=== PATIENT | female | born 1990 | race Caucasian/White ===

== ENCOUNTER → 2016-05-12 | Outpatient (CLI) | payer MEDICAID ==
[~2016-05-12] MED LIST: PNV1TABL43 PO
--- NOTE | 2016-05-12 11:34 | RADRPT ---
PROCEDURE: OBSTETRICAL ULTRASOUND WITH ENDOVAGINAL IMAGES CLINICAL INDICATION: SIZE/DATE TECHNIQUE: Multiple sonographic images of the pelvis were obtained utilizing a transabdominal and endovaginal technique. The images were reviewed on a PACS workstation. COMPARISON: None. LMP: FINDINGS: The uterus measures 8.1 x 5.2 x 5.2 cm. There is a single live intrauterine with heart rate of 163 beats per minute, yolk sa c, and crown-rump length of 2.46 cm which is consistent with a gestational age of 9 weeks, 1 day . The estimated date of delivery by ultrasound is in 12/14/2016 . The estimated gestational age by LMP is 10 weeks, 6 days . The estimated date of delivery by LMP is 12/02/2016 . There is a hypoechoic and hypovascular crescentic lesion adjacent to the gestational sac measuring 1 .6 x 0.7 cm. There is a similar adjacent hypoechoic and hypovascular crescentic lesion measuring 3. 4 x 0.2 cm. The right ovary measures 2.7 x 1.8 x 2.1 cm. The left ovary measures 2.6 x 2.1 x 2.2 cm. There is no rmal vascular flow in both ovaries. No significant ovarian lesions are seen. No significant pelvic free fluid is identified. IMPRESSION: Single live intrauterine consistent with a gestational age of 9 weeks, 1 day . The estimated date of delivery is 12/14/2016 . Dating by ultrasound is within 12 days of dating by LMP. Subchorionic hemorrhages measuring up to 1.6 cm and 3.4 cm. RPTAT: EE Physician Hailee Date Time Electronically viewed and signed by Physician Hailee on 05/12/2016 11:33 /
== END | disposition home or self-care (01) ==
LOC: U/S 09:42
PROVIDERS: ATTEND Obstetrics & Gynecology
DX: O26.841 Uterine size-date discrepancy, first trimester (principal); Z3A.09 9 weeks gestation of pregnancy
CPT/HCPCS: 76801; 76817

== ENCOUNTER 2016-08-27 09:51 | Emergency (ER) | payer OTHER ==
[~2016-08-27] VITALS: Ht 154.9 cm; Wt 106.5 kg
[2016-08-27 09:54] VITALS: Ht 154.9 cm; Wt 106.5 kg
[2016-08-27] MEDS ORDERED: ACET325T33 PO (10:26)
[2016-08-27] MEDS ORDERED: BACITUD TOP (10:26)
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
== END 2016-08-27 11:41 | disposition home or self-care (01) ==
LOC: FTE 09:51
DX: O9A.213 Injury, poisoning and certain other consequences of external causes complicating pregnancy, third trimester (principal); T21.22XA Burn of second degree of abdominal wall, initial encounter; X15.3XXA Contact with hot saucepan or skillet, initial encounter; Y92.9 Unspecified place or not applicable; Z3A.00 Weeks of gestation of pregnancy not specified
CPT/HCPCS: 99283

== ENCOUNTER 2016-09-07 10:04 | Outpatient (CLI) | payer OTHER ==
[~2016-09-07] VITALS: Ht 152.4 cm; Wt 105.9 kg
[~2016-09-07 10:04] MED LIST changes: +ACET325T33 PO; +BACITUD TOP
[2016-09-07 10:34] VITALS: BP 120/58; Ht 152.4 cm; Wt 105.9 kg
[2016-09-07 11:26] LABS: ADD SCAN DIFF NO
--- NOTE | 2016-09-07 11:35 | RADRPT ---
PROCEDURE: OB ultrasound (limited) CLINICAL INDICATION: Fall, pain TECHNIQUE: Limited transabdominal sonographic evaluation of the gravid uterus was performed. Miranda svaginal images were obtained to assess cervical length. COMPARISON: None available FINDINGS: Single intrauterine gestation is identified in breech presentation. Placenta is anterior without ev idence for abruption or previa. heart rate is 143 bpm. The cervix is closed and measures 3.4 cm in length. LENORA measures 7.6 cm, within normal limits. Maximum vertical pocket of fluid measure s 2.3 cm. Gestational age was not assessed. IMPRESSION: 1. Single live intrauterine gestation, as above. Breech presentation. RPTAT: EE .Obdulio Vargas MD, MD Date Time Electronically viewed and signed by .Obdulio Vargas MD, MD on 09/07/2016 11:34 .R/
[2016-09-07 11:42] LABS: BASOPHIL # 0.1 10^3/ul (0.0-0.1); BASOPHILS % 0.5 % (0.0-2.0); EOSINOPHILS # 0.2 10^3/ul (0.0-0.5); EOSINOPHILS % 1.8 % (0.0-7.0); HEMATOCRIT 34.9 % (37.0-47.0); HEMOGLOBIN 11.5 g/dl (12.0-16.0); LYMPHOCYTES # 2.3 10^3/ul (0.8-2.9); LYMPHOCYTES % 24.8 % (15.0-51.0); MEAN CORPUSCULAR HEMOGLOBIN 27.5 pg (29.0-33.0); MEAN CORPUSCULAR VOLUME 83.5 fl (82.0-101.0); MEAN PLATELET VOLUME 9.3 fl (7.4-10.4); MONOCYTE # 0.5 10^3/ul (0.3-0.9); MONOCYTES % 4.9 % (0.0-11.0); NEUTROPHIL # 6.2 10^3/ul (1.6-7.5); NEUTROPHILS % 67.4 % (39.0-77.0); PLATELET COUNT 327 10^3/UL (140-415); RED BLOOD COUNT 4.18 10^6/ul (4.20-5.40); RED CELL DISTRIBUTION WIDTH 13.3 % (11.5-14.5); WHITE BLOOD COUNT 9.3 10^3/ul (4.8-10.8)
--- NOTE | 2016-09-07 12:45 | RADRPT ---
PROCEDURE: OB ultrasound for biophysical profile CLINICAL INDICATION: Poor tone. TECHNIQUE: Multiple sonographic images of the pelvis were obtained. Transabdominal views of the g ravid uterus are available for review. The images were reviewed on a PACS workstation. COMPARISON: None FINDINGS: breathing movement = 2/2 tone = 2/2 motion = 2/2 LENORA = 2/2 LENORA = 8.9 cm Single live intrauterine with cardiac activity of 131 bpm. position is breech . The placenta is anterior. IMPRESSION: 1. Single live intrauterine gestation. 2. Biophysical profile = 8/8. 3. LENORA = 8.9 cm. 4. Breech presentation. RPTAT: HH .Lulu Yadav MD, Date Time Electronically viewed and signed by .Lulu Yadav MD, on 09/07/2016 12:45 .G/
--- NOTE | 2016-09-07 13:23 | TRIAGE ---
OB Triage Datetime Report Generated by CPN: 09/07/2016 13:22 Datetime: 09/07/2016 12:00 Pain Assessment Pain Scale: 0 Pain Presence: None/Denies Pain Type: N/A Datetime: 09/07/2016 11:52 Labor Evaluation Frequency: 0 Monitor Mode: External Pattern: Normal: <= 5 Contractions in 10 Minutes Resting Tone [place]: Relaxed Heart Rate Monitor Mode: External US Comments: NOT ABLE TO KEEP ON EXTERNAL MONITOR FHT AUSCULTATED WITH DOPPLER Datetime: 09/07/2016 11:22 EGA: 26.0 Datetime: 09/07/2016 10:50 Time Provider Notified: 09/07/2016 10:50 Datetime: 09/07/2016 10:40 Stage of : OB Triage Assessment Type: Triage Maternal Assessment Level of Consciousness: Fully Conscious DTR's/Clonus: DTRs 2+; No Clonus Headache: Denies Blurred Vision: No Respiratory Effort: Unlabored; Regular Rhythm; Equal Expansion Breath Sounds, Left: Clear and Equal Breath Sounds, Right: Clear and Equal Nausea/Vomiting: Denies RUQ Epigastric Pain: Denies Lower Extremities Edema: None Degree: None Upper Extremities Edema: None Degree: None Facial Edema: None Temperature Route: Oral Fall Risk Assessment History of Falling: (0) No Secondary Diagnosis: (0) No Ambulatory Aid: (0) Bedrest/Nurse Assist IV Therapy: (0) No Gait: (0) Normal/Bedrest/Immobile Mental Status: (0) Oriented to Own Ability Fall Score: 0 Fall Risk Score Definition: No Risk: No action required Monitor Mode: External Heart Rate Monitor Mode: Doppler (Annotations: 143) Variability: Moderate 6-25 bpm Accelerations: 15X15 Category: Category I Pain Assessment Pain Scale: 0 Pain Presence: None/Denies Pain Type: N/A Datetime: 09/07/2016 10:38 Time of Arrival: 09/07/2016 10:00 Arrived By: Ambulatory Arrived From: Dr. Poe Chief Complaint: SENT FROM CLINIC FOR S/P FALL ON 09/06/16 Movement: Present Rupture of Membranes: Denies Vaginal Bleeding: None Vaginal Discharge: Denies Recent Sexual Intercouse: Denies Abdominal Trauma: Not Applicable Patient Complaints: None Time Provider Notified: 09/07/2016 10:50 Provider Notified: DR. GUERRIER Initial Plan: EFM, US, KB TEST. CBC
--- NOTE | 2016-09-07 14:56 | QN ---
Documentation Comment 26-year-old with IUP at 26 weeks and 1 day status post fall yesterday at 9 PM. She landed on her knees. Denies any trauma to her abdomen. Denies any vaginal bleeding uterine contractions or decreased movement. She was sent from her OB office clinic today for observation and further evaluation rule out for abruption. Patient currently denies any symptoms. Rh+. Denies any pain. Denies any direct trauma to her abdomen. Physical examination: General appearance: Alert and oriented 4. Patient does not appear to be in any acute distress. Abdomen: Soft, gravid, fundal height consistent with gestational age. Abdomen nontender, no rebound tenderness, no guarding, no rigidity, NST: Category 1. Ultrasound: Breech presentation without any evidence of abruption or previa. Cervical length 3.4 cm. Cervix closed. LENORA 7.6. PROCEDURE: OB ultrasound for biophysical profile CLINICAL INDICATION: Poor tone. TECHNIQUE: Multiple sonographic images of the pelvis were obtained. Transabdominal views of the gravid uterus are available for review. The images were reviewed on a PACS workstation. COMPARISON: None FINDINGS: breathing movement = 2/2 tone = 2/2 motion = 2/2 LENORA = 2/2 LENORA = 8.9 cm Single live intrauterine with cardiac activity of 131 bpm. position is breech. The placenta is anterior. IMPRESSION: 1. Single live intrauterine gestation. 2. Biophysical profile = 8/8. 3. LENORA = 8.9 cm. 4. Breech presentation. PROCEDURE: OB ultrasound (limited) CLINICAL INDICATION: Fall, pain TECHNIQUE: Limited transabdominal sonographic evaluation of the gravid uterus was performed. Transvaginal images were obtained to assess cervical length. COMPARISON: None available FINDINGS: Single intrauterine gestation is identified in breech presentation. Placenta is anterior without evidence for abruption or previa. heart rate is 143 bpm. The cervix is closed and measures 3.4 cm in length. LENORA measures 7.6 cm, within normal limits. Maximum vertical pocket of fluid measures 2.3 cm. Gestational age was not assessed. IMPRESSION: 1. Single live intrauterine gestation, as above. Breech presentation. RPTAT: Hematology - 72 Hrs Test 09/07/16 11:05 White Blood Count 9.310^3/ul (4.8-10.8) Red Blood Count 4.1810^6/ul (4.20-5.40) L Hemoglobin 11.5g/dl (12.0-16.0) L Hematocrit 34.9% (37.0-47.0) L Mean Corpuscular Volume 83.5fl (82.0-101.0) Mean Corpuscular Hemoglobin 27.5pg (29.0-33.0) L Mean Corpuscular Hemoglobin Concent 33.0g/dl (32.0-37.0) Red Cell Distribution Width 13.3% (11.5-14.5) Platelet Count 12634^3/UL (140-415) Mean Platelet Volume 9.3fl (7.4-10.4) Neutrophils % 67.4% (39.0-77.0) Lymphocytes % 24.8% (15.0-51.0) Monocytes % 4.9% (0.0-11.0) Eosinophils % 1.8% (0.0-7.0) Basophils % 0.5% (0.0-2.0) Nucleated Red Blood Cells % 0.0/100WBC (0.0-0.0) Neutrophils # 6.210^3/ul (1.6-7.5) Lymphocytes # 2.310^3/ul (0.8-2.9) Monocytes # 0.510^3/ul (0.3-0.9) Eosinophils # 0.210^3/ul (0.0-0.5) Basophils # 0.110^3/ul (0.0-0.1) Nucleated Red Blood Cells # 0.010^3/ul (0.0-0.0) Kleihauer-Betke Stain 0.0000F/ARatio (0.0000) Assessment: IUP at 26 weeks and 1 day Status post fall Not direct trauma to the abdomen BPP reassuring. Ultrasound with no evidence of abruption LENORA: Borderline 7.6 Patient is asymptomatic. Presented more than 12 hours after trauma. She is a stable and asymptomatic. Rh+. Plan: DC home Follow-up in triage after adequate hydration tomorrow for repeat LENORA due to borderline low LENORA Follow-up with OB clinic as a scheduled in a couple of days. Strict labor precaution and kick count and abruption precaution was given to the patient. Patient verbalized understanding all above plan. HANS GROSS MD September 07, 2016 14:56
== END 2016-09-07 13:19 | disposition home or self-care (01) ==
LOC: OBT 10:04 → L-D 10:04 → OBT 13:19
PROVIDERS: ATTEND Obstetrics & Gynecology
DX: O32.1XX0 Maternal care for breech presentation, not applicable or unspecified (principal); Z3A.26 26 weeks gestation of pregnancy
CPT/HCPCS: 36415; 76815; 76817; 76818; 85025; 85460; Z7500; G0463

== ENCOUNTER 2016-11-24 10:29 | Outpatient (CLI) | payer OTHER ==
[~2016-11-24] VITALS: Ht 152.4 cm; Wt 107.3 kg
[2016-11-24 10:56] VITALS: BP 123/68; PULSE 86; RESP 18
[2016-11-24 10:58] VITALS: Ht 152.4 cm; Wt 107.3 kg
--- NOTE | 2016-11-24 12:57 | PN ---
Triage Information Date/Time 11/24/2016 Reason for visit: SROM Weeks of Gestation 37.1 /Para Objective Vital Signs Date Time Temp Pulse Resp B/P Pulse Ox O2 Delivery O2 Flow Rate FiO2 11/24/16 10:56 98.3 86 18 123/68 98 Room Air Heart Rate: 140's Heart Rate Comments reactive Contractions: None Results/Medications Results 24 hrs Laboratory Tests Test 11/24/16 11:30 Membranes Rupture NEGATIVE Medications none Imaging Results LENORA: seven Disposition: Discharge Assessment/Plan F/U with NST and office KELLE KIM MD Nov 24, 2016 12:57
--- NOTE | 2016-11-24 13:14 | TRIAGE ---
OB Triage Datetime Report Generated by CPN: 11/24/2016 13:13 Datetime: 11/24/2016 12:25 Monitor Mode: External Monitor Mode: External US Datetime: 11/24/2016 11:30 Stage of : OB Triage Maternal Assessment Level of Consciousness: Fully Conscious Labor Evaluation Frequency: OCCASIONAL Monitor Mode: External Duration (sec)2399: 80 Quality: Mild Resting Tone [place]: Relaxed Heart Rate FHR Baseline Rate: 125 Monitor Mode: External US Variability: Moderate 6-25 bpm Accelerations: 15X15 Decelerations: None Category: Category I Pain Assessment Pain Scale: 0 Pain Goal: 3 Vaginal Bleeding: None Datetime: 11/24/2016 11:28 Vaginal Exam Dilatation (cms): 0.0 Exam By: KHEMANI Vaginal Bleeding: None Pool: Negative Nitrazine: Negative Cervix, Consistency: Firm Cervix, Position: Posterior Datetime: 11/24/2016 10:54 Assessment Type: Triage Maternal Assessment Level of Consciousness: Fully Conscious DTR's/Clonus: DTRs 2+; No Clonus Headache: Denies Blurred Vision: No Respiratory Effort: Unlabored; Regular Rhythm; Equal Expansion Breath Sounds, Left: Clear and Equal Breath Sounds, Right: Clear and Equal Nausea/Vomiting: Denies RUQ Epigastric Pain: Denies Lower Extremities Edema: None Degree: None Upper Extremities Edema: None Degree: None Facial Edema: None Fall Risk Assessment History of Falling: (0) No Secondary Diagnosis: (0) No Ambulatory Aid: (0) Bedrest/Nurse Assist IV Therapy: (0) No Gait: (0) Normal/Bedrest/Immobile Mental Status: (0) Oriented to Own Ability Fall Score: 0 Fall Risk Score Definition: No Risk: No action required Datetime: 11/24/2016 10:53 Time of Arrival: 11/24/2016 10:24 EGA: 37.1 Arrived By: Ambulatory Arrived From: Other Unit in Hospital Chief Complaint: pt sent from [facility] FOR DROP IN LENORA TO R/O SROM Movement: Present Rupture of Membranes: Denies Vaginal Bleeding: None Vaginal Discharge: Denies Recent Sexual Intercouse: Denies Abdominal Trauma: Not Applicable Patient Complaints: None Provider Notified: CHEY Initial Plan: rom plus Datetime: 11/24/2016 10:50 Monitor Mode: External Monitor Mode: External US Datetime: 09/07/2016 11:22 EGA: 26.0 Datetime: 09/07/2016 10:40 Fall Score: 0 Fall Risk Score Definition: No Risk: No action required
== END 2016-11-24 13:20 | disposition home or self-care (01) ==
LOC: OBT 10:29 → L-D 10:32 → OBT 13:20
PROVIDERS: ATTEND Obstetrics & Gynecology
DX: O42.92 Full-term premature rupture of membranes, unspecified as to length of time between rupture and onset of labor (principal); Z3A.37 37 weeks gestation of pregnancy
CPT/HCPCS: 84112; Z7500; G0463

== ENCOUNTER 2016-11-28 12:01 | Outpatient (CLI) | payer OTHER ==
[~2016-11-28] VITALS: Ht 152.4 cm; Wt 106.8 kg
[~2016-11-28 12:01] MED LIST changes: -ACET325T33 PO; -BACITUD TOP
[2016-11-28 12:15] VITALS: Ht 152.4 cm; Wt 106.8 kg
[2016-11-28 12:16] VITALS: BP 122/69; PULSE 100; RESP 18
[2016-11-28] MEDS ORDERED: IRON1TAB77 PO (12:19)
[2016-11-28] MEDS ORDERED: CALC-143 PO (12:20)
[2016-11-28 13:49] LABS: BASOPHIL # 0.1 10^3/ul (0.0-0.1); BASOPHILS % 0.5 % (0.0-2.0); EOSINOPHILS # 0.1 10^3/ul (0.0-0.5); EOSINOPHILS % 0.9 % (0.0-7.0); HEMATOCRIT 36.9 % (37.0-47.0); HEMOGLOBIN 12.5 g/dl (12.0-16.0); LYMPHOCYTES # 2.3 10^3/ul (0.8-2.9); LYMPHOCYTES % 20.4 % (15.0-51.0); MEAN CORPUSCULAR HGB CONC 33.9 g/dl (32.0-37.0); MEAN CORPUSCULAR VOLUME 82.6 fl (82.0-101.0); MEAN PLATELET VOLUME 9.1 fl (7.4-10.4); MONOCYTE # 0.6 10^3/ul (0.3-0.9); MONOCYTES % 5.4 % (0.0-11.0); NEUTROPHILS % 72.2 % (39.0-77.0); PLATELET COUNT 332 10^3/UL (140-415); RED BLOOD COUNT 4.47 10^6/ul (4.20-5.40); RED CELL DISTRIBUTION WIDTH 12.6 % (11.5-14.5); WHITE BLOOD COUNT 11.4 10^3/ul (4.8-10.8)
--- NOTE | 2016-11-28 13:53 | RADRPT ---
PROCEDURE: OB ultrasound for biophysical profile CLINICAL INDICATION: Hypertension TECHNIQUE: Multiple sonographic images of the pelvis were obtained. Transabdominal view of the gr avid uterus are available for review. The images were reviewed on a PACS workstation. COMPARISON: None FINDINGS: breathing movement = 2/2 tone = 2/2 motion = 2/2 LENORA = 2/2 LENORA = 7.3 cm, consistent with borderline oligohydramnios Single live intrauterine with cardiac activity. heart rate equals 154 beats p er minute. Presentation is cephalic. The placenta is anterior grade 1. IMPRESSION: 1. Single viable intrauterine gestation. 2. Biophysical profile = 8/8. 3. LENORA = 7.3 cm, consistent with borderline oligohydramnios. RPTAT: KK .Clarke Melgar MD, Date Time Electronically viewed and signed by .Clarke Melgar MD, MD on 11/28/2016 13:53 .B/
[2016-11-28 14:07] LABS: ADD UMIC YES; ALBUMIN 3.4 g/dl (3.3-4.9); ALBUMIN/GLOBULIN RATIO 1.09; CREATININE 0.65 mg/dl (0.44-1.00); TOTAL PROTEIN 6.5 g/dl (6.1-8.1); UR ASCORBIC ACID NEGATIVE (NEGATIVE); UR BILIRUBIN (Dip) NEGATIVE (NEGATIVE); UR BLOOD (Dip) NEGATIVE (NEGATIVE); UR CLARITY CLEAR (CLEAR); UR COLOR YELLOW (YELLOW); UR GLUCOSE (Dip) NEGATIVE (NEGATIVE); UR KETONES (Dip) NEGATIVE (NEGATIVE); UR LEUKOCYTE ESTERASE (Dip) 1+ Leu/ul (NEGATIVE); UR MUCUS FEW /HPF (NONE SEEN); UR NITRITE (Dip) NEGATIVE (NEGATIVE); UR RBC 1 /HPF (0-5); UR SPECIFIC GRAVITY (Dip) 1.019 (1.003-1.030); UR SQUAMOUS EPITHELIAL CELL FEW /HPF (FEW); UR TOTAL PROTEIN (Dip) NEGATIVE (NEGATIVE); UR UROBILINOGEN (Dip) NEGATIVE (NEGATIVE); URIC ACID 5.4 mg/dl (3.1-7.9)
--- NOTE | 2016-11-28 18:13 | QN ---
Documentation Comment iup 37 weeks HPB vss exam wnl labns wnl a/p iup 37 weeks PIH ruled out false labor dc home KAILEE PITTMAN MD Nov 28, 2016 18:12
== END 2016-11-28 14:42 | disposition home or self-care (01) ==
LOC: L-D 12:01 → OBT 12:01
PROVIDERS: ATTEND Obstetrics & Gynecology
DX: O13.3 Gestational [pregnancy-induced] hypertension without significant proteinuria, third trimester (principal); Z3A.37 37 weeks gestation of pregnancy
CPT/HCPCS: 76818; 80053; 81001; 84560; 85025; Z7500; G0463

== ENCOUNTER 2016-12-07 04:30 | Inpatient (IN) | payer OTHER ==
[~2016-12-07] VITALS: Ht 152.4 cm; Wt 107.1 kg
[~2016-12-07 04:30] MED LIST changes: +CALC-143 PO; +IRON1TAB77 PO
[2016-12-07 05:04] VITALS: Ht 152.4 cm; Wt 107.1 kg
[2016-12-07 05:05] VITALS: BP 129/68; PULSE 64
--- NOTE | 2016-12-07 06:05 | RADRPT ---
PROCEDURE: Limited OB ultrasound CLINICAL INDICATION: Low LENORA TECHNIQUE: Sonographic evaluation to assess the LENORA was performed. Transabdominal imaging of the gravid uterus was performed. COMPARISON: Biophysical profile dated 11/28/2016 FINDINGS: There is a single live intrauterine with a heart rate of 134 bpm. position is cephalic. The placenta is anterior. The LENORA measures 5.3 cm. IMPRESSION: The LENORA measures 5.3 cm, compared to 7.3 cm on the prior examination. RPTAT: HH .Lulu Yadav MD, MD Date Time Electronically viewed and signed by .Lulu Yadav MD, on 12/07/2016 06:05 .G/
[2016-12-07] MEDS ORDERED: CARBOPROST 250 MCG INJ IM PRN ×2 (07:00→21:30)
[2016-12-07] MEDS ORDERED: OXYTOCIN 30 UNITS/LR 500 ML IV SCH ×2 (07:00)
[2016-12-07] MEDS ORDERED: IBUPROFEN 600 MG TAB PO PRN (07:00)
[2016-12-07] MEDS ORDERED: LIDOCAINE 1% (MPF) 30 ML INJ INJ PRN (07:00)
[2016-12-07] MEDS ORDERED: METHYLERGONOVINE 0.2 MG INJ IM PRN ×2 (07:00→21:30)
[2016-12-07] MEDS ORDERED: BUTORPHANOL 2 MG INJ IV PRN (07:00)
[2016-12-07] MEDS ORDERED: MISOPROSTOL 200 MCG TAB PR PRN ×2 (07:00→21:30)
[2016-12-07] MEDS ORDERED: LACTATED RINGER'S 1,000 ML IV PRN (07:00)
[2016-12-07] MEDS ORDERED: OXYTOCIN 30 UNITS/LR 500 ML IV PRN ×2 (07:00→21:30)
--- NOTE | 2016-12-07 07:08 | TRIAGE ---
OB Triage Datetime Report Generated by CPN: 12/07/2016 07:08 Datetime: 12/07/2016 06:55 Labor Evaluation Frequency: 8-9 Monitor Mode: External Duration (sec)2399: 60-70 Pattern: Normal: <= 5 Contractions in 10 Minutes Heart Rate FHR Baseline Rate: 130 Monitor Mode: External US FHR Baseline Changes: No Baseline Change Variability: Moderate 6-25 bpm Accelerations: 15X15 Datetime: 12/07/2016 06:32 Vaginal Exam Dilatation (cms): 2.0 Effacement (%): 60 Station: -2 Exam By: GSTRATTON Datetime: 12/07/2016 06:00 Labor Evaluation Frequency: 8-9 Monitor Mode: External Duration (sec)2399: 60-70 Pattern: Normal: <= 5 Contractions in 10 Minutes Heart Rate FHR Baseline Rate: 130 Monitor Mode: External US FHR Baseline Changes: No Baseline Change Variability: Moderate 6-25 bpm Accelerations: 15X15 Datetime: 12/07/2016 05:13 Comments: EXTERNAL MONITORING CONTINUOUS WITH LOSS OF CONTACT D/T EXCESSIVE ADIPOSE TISSUE, PT IS OBESE, LARGE BMI Datetime: 12/07/2016 04:52 Stage of : OB Triage Assessment Type: Triage Maternal Assessment Level of Consciousness: Fully Conscious Headache: Denies Blurred Vision: No Respiratory Effort: Unlabored; Regular Rhythm; Equal Expansion Nausea/Vomiting: Denies RUQ Epigastric Pain: Denies Facial Edema: None Fall Risk Assessment History of Falling: (0) No Secondary Diagnosis: (0) No Ambulatory Aid: (0) Bedrest/Nurse Assist IV Therapy: (0) No Gait: (0) Normal/Bedrest/Immobile Mental Status: (0) Oriented to Own Ability Fall Score: 0 Fall Risk Score Definition: No Risk: No action required Datetime: 12/07/2016 04:51 Time of Arrival: 12/07/2016 04:30 EGA: 39.0 Arrived By: Wheelchair Arrived From: Home Chief Complaint: UC'S SINCE 2099 Movement: Present Contractions: Regular Time Contractions Began: 12/06/2016 21:00 Contractions: Q5MIN Rupture of Membranes: Denies Vaginal Bleeding: None Vaginal Discharge: Denies Recent Sexual Intercouse: Denies Abdominal Trauma: Not Applicable Patient Complaints: Contractions Time Provider Notified: 12/07/2016 05:35 Provider Notified: DELSHAD Initial Plan: EFM, SVE, CALL OB Datetime: 12/07/2016 04:47 Stage of : OB Triage Vaginal Exam Dilatation (cms): 2.0 Effacement (%): 60 Station: -2 Exam By: GSTRATTYAMIL RN Membrane Status: Intact Datetime: 12/07/2016 04:40 Stage of : OB Triage Temperature Route: Oral Pain Assessment Pain Scale: 7 Pain Presence: Intermittent Datetime: 11/28/2016 14:42 Labor Evaluation Frequency: 0 Monitor Mode: External Pattern: Normal: <= 5 Contractions in 10 Minutes Resting Tone [place]: Relaxed Heart Rate FHR Baseline Rate: 130 Monitor Mode: External US Variability: Moderate 6-25 bpm Accelerations: 15X15 Decelerations: None Category: Category I Pain Presence: None/Denies Datetime: 11/28/2016 14:27 Maternal Assessment Level of Consciousness: Fully Conscious DTR's/Clonus: DTRs 2+; No Clonus Headache: Denies Blurred Vision: No Nausea/Vomiting: Denies RUQ Epigastric Pain: Denies Facial Edema: None Datetime: 11/28/2016 14:26 Monitor Mode: External US Datetime: 11/28/2016 13:08 Labor Evaluation Frequency: 0 Monitor Mode: External Pattern: Normal: <= 5 Contractions in 10 Minutes Resting Tone [place]: Relaxed Heart Rate FHR Baseline Rate: 130 Monitor Mode: External US Variability: Moderate 6-25 bpm Accelerations: 15X15 Decelerations: None Category: Category I Datetime: 11/28/2016 12:23 Assessment Type: Admission Assessment Maternal Assessment Level of Consciousness: Fully Conscious DTR's/Clonus: DTRs 2+; No Clonus Headache: Denies Blurred Vision: No Respiratory Effort: Unlabored; Regular Rhythm; Equal Expansion Breath Sounds, Left: Clear and Equal Breath Sounds, Right: Clear and Equal Nausea/Vomiting: Denies RUQ Epigastric Pain: Denies Lower Extremities Edema: None Degree: None Upper Extremities Edema: None Degree: None Facial Edema: None Fall Risk Assessment History of Falling: (0) No Secondary Diagnosis: (0) No Ambulatory Aid: (0) Bedrest/Nurse Assist IV Therapy: (0) No Gait: (0) Normal/Bedrest/Immobile Mental Status: (0) Oriented to Own Ability Fall Score: 0 Fall Risk Score Definition: No Risk: No action required Datetime: 11/28/2016 12:22 Time of Arrival: 11/28/2016 11:55 EGA: 37.5 Arrived By: Ambulatory Arrived From: Home Chief Complaint: PT. HERE FROM CLINIC FOR HIGH BP'S. Movement: Present Contractions: Denies/Absent Rupture of Membranes: Denies Vaginal Bleeding: None Vaginal Discharge: Denies Recent Sexual Intercouse: Denies Abdominal Trauma: Not Applicable Patient Complaints: None Time Provider Notified: 11/28/2016 12:37 Provider Notified: DR. GUERRIER Initial Plan: TOCO / US. CBC, CMP, URIC ACID, UA AND BPP Datetime: 11/28/2016 12:09 Stage of : OB Triage Pain Presence: None/Denies Datetime: 11/24/2016 12:30 Stage of : OB Triage Maternal Assessment Level of Consciousness: Fully Conscious Labor Evaluation Frequency: NONE Monitor Mode: External Resting Tone [place]: Relaxed Heart Rate FHR Baseline Rate: 125 Monitor Mode: External US Variability: Moderate 6-25 bpm Accelerations: 15X15 Decelerations: None Pain Assessment Pain Scale: 0 Pain Goal: 3 Vaginal Bleeding: None Datetime: 11/24/2016 10:54 Fall Score: 0 Fall Risk Score Definition: No Risk: No action required Datetime: 11/24/2016 10:53 EGA: 37.1 Time Provider Notified: 11/24/2016 10:24 Datetime: 09/07/2016 11:22 EGA: 26.0 Datetime: 09/07/2016 10:40 Fall Score: 0 Fall Risk Score Definition: No Risk: No action required
[2016-12-07] MEDS: LACTATED RINGER'S 1,000 ML IV SCH ×3 (07:59→16:10)
[2016-12-07 08:59] LABS: BASOPHIL # 0.1 10^3/ul (0.0-0.1); BASOPHILS % 0.7 % (0.0-2.0); EOSINOPHILS # 0.2 10^3/ul (0.0-0.5); EOSINOPHILS % 1.3 % (0.0-7.0); HEMATOCRIT 35.3 % (37.0-47.0); HEMOGLOBIN 12.2 g/dl (12.0-16.0); LYMPHOCYTES # 2.6 10^3/ul (0.8-2.9); LYMPHOCYTES % 23.4 % (15.0-51.0); MEAN CORPUSCULAR HEMOGLOBIN 28.3 pg (29.0-33.0); MEAN CORPUSCULAR HGB CONC 34.6 g/dl (32.0-37.0); MEAN CORPUSCULAR VOLUME 81.9 fl (82.0-101.0); MEAN PLATELET VOLUME 10.4 fl (7.4-10.4); MONOCYTE # 0.6 10^3/ul (0.3-0.9); MONOCYTES % 5.7 % (0.0-11.0); NEUTROPHILS % 68.3 % (39.0-77.0); PLATELET COUNT 334 10^3/UL (140-415); RED BLOOD COUNT 4.31 10^6/ul (4.20-5.40); RED CELL DISTRIBUTION WIDTH 12.8 % (11.5-14.5); WHITE BLOOD COUNT 11.2 10^3/ul (4.8-10.8)
[2016-12-07] MEDS ORDERED: AMPICILLIN 2 GM/NS (PMX) 100 ML IV ONE (09:00)
[2016-12-07 09:18] LABS: INR 0.91; PROTIME 12.2 Sec (12.2-14.2)
[2016-12-07 09:19] LABS: PARTIAL THROMBOPLASTIN TIME 28.6 Sec (25.0-35.0)
[2016-12-07] MEDS ORDERED: AMPICILLIN 1 GM/NS (PMX) 50 ML ONE (11:33)
[2016-12-07] MEDS: AMPICILLIN 1 GM/NS (PMX) 50 ML IV SCH ×2 (11:40→16:18)
[2016-12-07] MEDS ORDERED: CITRIC ACID/NA CITRATE 30 ML CUP ONE (14:18)
[2016-12-07] MEDS ORDERED: LACTATED RINGER'S 1,000 ML IV ONE (14:19)
[2016-12-07] MEDS ORDERED: ONDANSETRON 4 MG INJ ONE (14:19)
[2016-12-07] MEDS ORDERED: FENTAnyl 2MCG/ML-ROPIV 0.2% 100 ML ONE (14:24)
[2016-12-07] MEDS ORDERED: ONDANSETRON 4 MG INJ IV PRN (14:30)
[2016-12-07] MEDS ORDERED: NALOXONE (0.4 MG/ML) INJ IV PRN (14:30)
[2016-12-07] MEDS ORDERED: morphine 2 MG INJ IV PRN (14:30)
[2016-12-07] MEDS ORDERED: CITRIC ACID/NA CITRATE 30 ML CUP PO ONE (14:30)
[2016-12-07] MEDS ORDERED: morphine 4 MG/ML VIAL IV PRN (14:30)
[2016-12-07] MEDS ORDERED: TRIMETHOBENZAMIDE 100 MG/ML VIAL IM PRN (14:30)
[2016-12-07] MEDS ORDERED: KETOROLAC 30 MG INJ IV PRN (14:30)
[2016-12-07] MEDS ORDERED: FENTAnyl 2MCG/ML-ROPIV 0.2% 100 ML BAG EPI SCH (14:30)
[2016-12-07] MEDS ORDERED: DIPHENHYDRAMINE 50 MG INJ IV PRN (14:30)
[2016-12-07] MEDS ORDERED: ONDANSETRON 4 MG INJ IV ONE (14:30)
[2016-12-07] MEDS ORDERED: NALBUPHINE HCL (10 MG/1 ML) INJ IV PRN (14:30)
[2016-12-07] MEDS ORDERED: MINERAL OIL LIGHT 10 ML VIAL TOP ONE (18:00)
--- NOTE | 2016-12-07 18:40 | LDN ---
Date/Time of Note Date/Time of Note DATE: 12/07/16 TIME: 18:38 Delivery Summary Normal spontaneous vaginal delivery of a viable over an intact perineum Weeks of Gestation 38 weeks plus Placenta Delivered: Spontaneously, Intact & Complete Meconium: none Episiotomy: No Perineal laceration: 0 Anesthesia type: Epidural Estimated blood loss: 300 Sponge & Needle done & correct: Yes All needle counts correct: Yes Any foreign bodies felt in the: No Problems: Delivery Information Sex Sex: male Apgars 1 Minute: 9 5 Minute: 9 Suctioning Nose & mouth suctioned at gabriela: Yes Delee suction performed: No Umbilical Cord Umbilical cord with: 3 Vessels Cord presentations: no nuchal cord Cord Blood was obtained: Yes Mother & Baby Disposition Disposition Mom & Baby to Maternity; Good: Yes (Mother and baby were recovered in good condition) Mom transferred to: Other (Maternity) Baby to NICU: No KELLE KIM MD Dec 07, 2016 18:40
--- NOTE | 2016-12-07 18:44 | HP ---
Date/Time of Note Date/Time of Note DATE: 12/07/16 TIME: 18:40 OB - History Hx of Present Last Menstrual Period: Feb 26, 2016 Estimated Due Date: Dec 14, 2016 : 4 Para: 3 Care: Good Care Ultrasounds: Normal mid trimester US Obstetrical Complications: Other (Low FELICITA-A) Medical Complications: None Past Family/Social History * Past Medical, Surgical, Family and Obstetric Histories reviewed from chart. Blood Type: A+ Rubella: immune RPR/VDRL: Negative GBS Status: Unknown HBsAG: Negative OB Admission Exam Vital Signs Vital Signs Vital Signs Date Time Temp Pulse Resp B/P Pulse Ox O2 Delivery O2 Flow Rate FiO2 12/07/16 05:05 97.8 64 129/68 98 Room Air Physical Exam HEENT: WNL Heart: Rhythm Normal Lungs: Clear, Equal Abdomen: WNL Extremities: Normal Reflexes: Normal Cervical Dilatation: 4cm Effacement: 75% Station: -3 Membranes: Intact Heart Rate: 130's Accelerations: Accelerations Present Decelerations: No Decelerations Varibility: Marked Contractions on Admission: < 5 Minutes Apart Date/Time Contractions Began: December 07, 2016 Frequency of Contractions: Every 5 minutes Duration: Over 30 seconds Intensity: Moderate Last 72 hours Lab Results CBC & BMP 12/07/16 07:30 OB Assessment/Plan Other Assessment: Term gestation Liver pain Other plan: Proceed with spontaneous labor KELLE KIM MD Dec 07, 2016 18:44
[2016-12-07 20:55] VITALS: BP 117/61; PULSE 78; RESP 17
[2016-12-07] MEDS: LACTATED RINGER'S 1,000 ML IV* SCH (21:26)
[2016-12-07] MEDS ORDERED: ZOLPIDEM 5 MG TAB PO PRN (21:30)
[2016-12-07] MEDS ORDERED: DIBUCAINE 1% 30 GM OINT PR PRN (21:30)
[2016-12-07] MEDS ORDERED: HYDROCODONE/APAP (5/325) TAB PO PRN ×2 (21:30)
[2016-12-07] MEDS ORDERED: LANOLIN 7 GM TUBE TOP PRN (21:30)
[2016-12-07] MEDS ORDERED: BENZOCAINE 20% 56 ML SPRAY TOP PRN (21:30)
[2016-12-07] MEDS ORDERED: WITCH HAZEL/GLYCERIN PAD PR PRN (21:30)
[2016-12-07] MEDS: SENNA/DOCUSATE NA (8.6MG/50MG) TAB PO SCH (21:50)
[2016-12-07] MEDS: MAGNESIUM HYDROXIDE 30ML CUP PO SCH (21:51)
[2016-12-07] MEDS: CEPHALEXIN 500 MG CAP PO SCH (23:46)
[2016-12-07] MEDS: IBUPROFEN 600 MG TAB PO SCH (23:46)
[2016-12-08] VITALS (7 sets, daily range): BP systolic 93–115; BP diastolic 48–66; PULSE 60–75; RESP 17–19
[2016-12-08] MEDS: IBUPROFEN 600 MG TAB PO SCH ×3 (06:00→14:17)
[2016-12-08] MEDS: CEPHALEXIN 500 MG CAP PO SCH ×3 (06:00→17:51)
[2016-12-08] MEDS: LACTATED RINGER'S 1,000 ML IV* SCH ×2 (08:09→13:26)
[2016-12-08] MEDS: MAGNESIUM HYDROXIDE 30ML CUP PO SCH ×2 (09:00→21:32)
[2016-12-08] MEDS: SENNA/DOCUSATE NA (8.6MG/50MG) TAB PO SCH ×2 (09:00→21:33)
[2016-12-08 10:48] LABS: BASOPHIL # 0.1 10^3/ul (0.0-0.1); BASOPHILS % 0.6 % (0.0-2.0); EOSINOPHILS # 0.2 10^3/ul (0.0-0.5); EOSINOPHILS % 1.5 % (0.0-7.0); HEMATOCRIT 30.6 % (37.0-47.0); HEMOGLOBIN 10.2 g/dl (12.0-16.0); LYMPHOCYTES # 3.1 10^3/ul (0.8-2.9); LYMPHOCYTES % 27.3 % (15.0-51.0); MEAN CORPUSCULAR HGB CONC 33.3 g/dl (32.0-37.0); MEAN CORPUSCULAR VOLUME 84.1 fl (82.0-101.0); MEAN PLATELET VOLUME 9.4 fl (7.4-10.4); MONOCYTE # 0.7 10^3/ul (0.3-0.9); MONOCYTES % 6.3 % (0.0-11.0); NEUTROPHILS % 63.6 % (39.0-77.0); PLATELET COUNT 279 10^3/UL (140-415); RED BLOOD COUNT 3.64 10^6/ul (4.20-5.40); RED CELL DISTRIBUTION WIDTH 12.9 % (11.5-14.5); WHITE BLOOD COUNT 11.5 10^3/ul (4.8-10.8)
--- NOTE | 2016-12-08 13:45 | DS ---
Date/Time of Note Date/Time of Note Home next day DATE: 12/08/16 TIME: 13:43 Obstetrical Discharge Record Final Diagnosis Final Diagnosis: Term delivered Other Final Diagnosis Status post vaginal delivery Vaginal Delivery Obstetrical Delivery: Spontaneous Condition on Discharge Physical Assessment Last Vitals: See nurse's notes Voiding: Yes Bowel Movement: Yes Breast: Soft, non-tender, Filling Fundus: Firm Abdomen and Incision: Soft bowel sounds present Episiotomy: Not applicable Perineum is clean Calf Tenderness: No Patient Condition: Good KELLE KIM MD Dec 08, 2016 13:45
--- NOTE | 2016-12-08 17:02 | PD.PPDC ---
REALTIME REPORTER Discharge Instruction Provider Information Physician Information 26-year-old female had vaginal delivery Diagnosis Final Diagnosis: Status post vaginal delivery Condition Patient Condition: Good Diet Diet: Resume Regular Diet Activity/Restrictions Activity: August Shower Restrictions: No Exercising No Lifting Nothing in the Vagina Return to Work or School: Jan 23, 2017 Wound/Drain Care Instructions Wound/Drain Care Instructions: Keep clean and dry Follow-up Follow-up with Physician: 4, Week/Weeks (In clinic for staple removal) Return to clinic for REIKI PRACTITIONER Instructions: Fever greater than 101 Chills Worsening abdominal pain Excessive Vaginal Bleeding OB Instructions: Breast Tenderness Depression Comment: Pelvic rest 6 weeks No hard activity 4 weeks Surgical Instructions: Incisional Drainage Incisional Redness KELLE KIM MD Dec 08, 2016 17:02
[2016-12-08] MEDS ORDERED: IBUP-1542 PO (17:03)
[2016-12-09] VITALS (14 sets, daily range): BP systolic 105–124; BP diastolic 55–72; PULSE 54–70; RESP 9–20
[2016-12-09] MEDS: CEPHALEXIN 500 MG CAP PO SCH ×4 (00:18→18:00)
[2016-12-09] MEDS: IBUPROFEN 600 MG TAB PO SCH ×4 (00:18→18:00)
[2016-12-09] MEDS: LACTATED RINGER'S 1,000 ML IV* SCH ×4 (05:26→21:26)
[2016-12-09] MEDS ORDERED: VARICELLA VACCINE LIVE/PF 1,350 UNIT/0.5 ML ML SC* ONE (09:00)
[2016-12-09] MEDS: MAGNESIUM HYDROXIDE 30ML CUP PO SCH ×2 (09:00→21:44)
[2016-12-09] MEDS: SENNA/DOCUSATE NA (8.6MG/50MG) TAB PO SCH ×2 (09:00→21:44)
[2016-12-09] MEDS ORDERED: DIPHTH/TET/ACEL PERTUSS (ADULT) 0.5 ML VIAL IM* ONE (09:00)
[2016-12-09] MEDS ORDERED: MEASLES,MUMPS,RUBELLA VACCINE INJ SC* ONE (09:00)
--- NOTE | 2016-12-09 15:48 | PN ---
Date/Time of Note Date/Time of Note DATE: 12/09/16 TIME: 15:45 Assessment/Plan VTE Prophylaxis VTE Prophylaxis Intervention: ambulation Lines/Catheters IV Catheter Type (from Nrs): Saline Lock Assessment/Plan Assessment/Plan multiparity with desire for sterilization will preoceed with BTL Subjective 24 Hr Interval Summary Free Text/Dictation requests sterilization procedure Constitutional: improved, no complaints Eyes: no complaints ENT: no complaints Respiratory: no complaints Cardiovascular: no complaints Gastrointestinal: no complaints Genitourinary: no complaints Musculoskeletal: no complaints Skin: no complaints Neurologic: no complaints Endocrine: no complaints Lymphatic: no complaints Psychological: nl mood/affect, no complaints Immunologic: no complaints Exam/Review of Systems Vital Signs Vitals Vital Signs Date Time Temp Pulse Resp B/P Pulse Ox O2 Delivery O2 Flow Rate FiO2 12/09/16 14:51 98.0 58 18 117/68 Room Air 12/07/16 05:05 98 Intake and Output 12/08/16 12/08/16 12/09/16 15:00 23:00 07:00 Intake Total 1000 ml 125 ml Balance 1000 ml 125 ml Exam abdomen: soft BS + fundus: firm Constitutional: alert, oriented, well developed Psych: nl mood/affect, no complaints Head: atraumatic, normocephalic Eyes: EOMI, PERRL, nl conjunctiva, nl lids, nl sclera ENMT: nl external ears & nose, nl lips & teeth, nl nasal mucosa & septum Neck: non-tender, supple Respiratory: clear to auscultation, normal air movement Cardiovascular: nl pulses, regular rate and rhythm Gastrointestinal: nl liver, spleen, non-tender, soft Genitourinary - Female: other (PP lochia ), uterus (fundus at U, firm ) Musculoskeletal: nl extremities to inspection, nl gait and stance Extremities: normal pulses Neurological: KILN PACKER II-XII intact, nl mental status, nl speech, nl strength Skin: nl turgor, No rash or lesions Lymph: nl lymph nodes Results Result Diagram: 12/08/16 1027 Medications Medications Current Medications Lactated Ringer's (Lr) 1,000 ml @ 125 mls/hr Q8H IV* Last administered on t 14:35; Admin Dose 125 MLS/HR; Start 12/07/16 at 21:26 Ibuprofen (Motrin) 600 mg Q6 PO Last administered on 12/09/16 05:42; Admin Dose 600 MG; Start 12/08/16 at 00:00 Acetaminophen/ Hydrocodone Bitart ([place] (5/325)) 1 tab Q4H PRN PO PAIN LEVEL 1 -5 Last administered on 12/07/16 21:51; Admin Dose 1 TAB; Start 12/07/16 at 21: 30 Acetaminophen/ Hydrocodone Bitart ([place] (5/325)) 2 tab Q4H PRN PO PAIN LEVEL 6 -10; Start 12/07/16 at 21:30 Zolpidem Tartrate (Ambien) 5 mg QHS PRN PO INSOMNIA; Start 12/07/16 at 21:30 Senna/Docusate Sodium (Senokot-S) 1 tab BID PO Last administered on 12/08/16 21:33; Admin Dose 1 TAB; Start 12/07/16 at 21:30 Magnesium Hydroxide 30 ml 30 ml Q12 PO Last administered on 12/08/16 21:32; Admin Dose 30 ML; Start 12/07/16 at 21:30 Oxytocin/Lactated Ringer's 500 ml @ 0 mls/hr ONCE PRN IV For Hemorrhage Management; Start 12/07/16 at 21:30 Methylergonovine Maleate (Methergine) 0.2 mg ONCE PRN IM VAGINAL BLEEDING; Start 12/07/16 at 21:30 Carboprost Tromethamine (Hemabate) 250 mcg ONCE PRN IM VAGINAL BLEEDING; Start 12/07/16 at 21:30 Misoprostol (Cytotec) 1,000 mcg ONCE PRN AR VAGINAL BLEEDING; Start 12/07/16 at 21:30 Cephalexin (Keflex) 500 mg Q6 PO Last administered on 12/09/16 05:42; Admin Dose 500 MG; Start 12/08/16 at 00:00 KELLE KIM MD Dec 09, 2016 15:48
[2016-12-09] MEDS ORDERED: BUPIVACAINE 0.25% (MPF) 30 ML INJ ONE (15:52)
[2016-12-09] MEDS ORDERED: PROPOFOL 20 ML ONE (15:56)
[2016-12-09] MEDS ORDERED: ROCURONIUM 50 MG INJ ONE ×2 (15:56→16:29)
[2016-12-09] MEDS ORDERED: ROPIVACAINE 0.2% 20 ML VIAL ONE (15:57)
[2016-12-09] MEDS ORDERED: MIDAZOLAM 1 MG/ML 2 ML INJ ONE (15:57)
[2016-12-09] MEDS ORDERED: BUPIVACAINE 0.5%/EPI (SDV) 30 ML INJ ONE (15:57)
[2016-12-09] MEDS ORDERED: FENTAnyl 50 MCG/ML VIAL ONE ×2 (15:57→17:51)
[2016-12-09] MEDS ORDERED: CEFAZOLIN 1 GM INJ ONE (16:29)
[2016-12-09] MEDS ORDERED: LABETALOL HCL 20MG INJ ONE (16:55)
[2016-12-09] MEDS ORDERED: ONDANSETRON 4 MG INJ ONE (16:56)
[2016-12-09] MEDS ORDERED: KETOROLAC 30 MG INJ ONE ×2 (16:57→17:57)
[2016-12-09] MEDS ORDERED: METOCLOPRAMIDE 10 MG INJ ONE (16:57)
[2016-12-09] MEDS ORDERED: DEXAMETHASONE 4 MG/ML 1 ML INJ ONE (16:57)
[2016-12-09] MEDS ORDERED: SUGAMMADEX SODIUM 200 MG/2 ML VIAL IV ONE (16:57)
--- NOTE | 2016-12-09 17:23 | OPR ---
Operative Report Planned Procedure Procedure date Dec 09, 2016 Procedure(s) bilateral tubal ligation Performed by: KELLE KIM MD Anesthesiologist: ANÍBAL MATTSON MD Pre-procedure diagnosis multiparity with desire for sterilization S/P vaginal delivery Anesthesia Type: general Procedure Description The patient was placed on the OR table in supine position. Spinal anesthesia was placed. A Acosta catheter was then inserted into urinary bladder under aseptic condition. After induction of spinal anesthesia, with the patient in supine position, abdominal area was prepped and draped for usual tubal ligation procedure. Under satisfactory anesthesia, a small incision 2 to 3 cm in length was placed just below belly button, incision extended laterally to 1.5 cm lateral to the linea nigra on either side. Incision was carried down with sharp and blunt dissection until fascia was reached. Anterior recti muscle fascia was incised in the midportion. Incision extended laterally to the border of the skin incision. Peritoneum was visualized. Avoiding bowel or bladder, incision was made in peritoneum, which was extended laterally to the border of the skin incision. Two [place] retractors were placed inside the incision. Incision was brought up to the level of the left fallopian tube. Fallopian tube was raised in the mid portion. A clamp was placed below the fimbriated end, most of the fallopian tube from the mesosalpinx traversing the isthmus portion of the tube. Another clamp was placed just below the first and 0 Vicryl tie was used to tie the mesosalpinx and the stump of the fallopian tube on the proximal side. Another stitch of the same kind was used for adequate hemostasis. Hemostasis appeared to be secure on ligated sites of the fallopian tube. Tube was incised above the stitched area. Same procedure was done on the fallopian tube on opposite side. Hemostasis appeared to be secure on ligated sites of either fallopian tubes. Ovaries were within normal limits. Uterus appears to be size. Announcing needle, lap, sponge and instrument count to be correct, abdomen was closed in layers as follows: Peritoneum with running stitches of #1 Vicryl, fascia edges of #1 Vicryl, subcutaneous tissue with running stitches of #1 Vicryl, and skin was reapproximated using subcuticular stitches of 4-0 Monocryl on a PS2 needle and also Dermabond was placed on the incision. The patient tolerated the procedure very well and was transferred to postanesthesia recovery room in stable and good condition. ESTIMATED BLOOD LOSS: Less than 5 mL. Post-Procedure Post-procedure diagnosis S/P bilateral tubal ligation Findings: normal R and L fallopian tubes . Specimen removed: Yes Specimen description segments of R and L fallopian tubes Complications: None Pt Condition post procedure: stable Disposition: PACU Physician Certification I, the undersigned physician, hereby certify that I have discussed the procedure described in this consent form with this patient (or the patient's legal office machines sales representative), including: * The risk and benefits of the procedure; * Any adverse reactions that may reasonably be expected to occur; * Any alternative efficacious methods of treatment which may be medically viable ; * The potential problems that may occur during recuperation; * Potential for blood transfusion and associated risks/benefits; and * Any research or economic interest I may have regarding this treatment. I further certify that the patient/legally responsible person was encouraged to ask question and that all questions were answered. KELLE KIM MD Dec 09, 2016 17:22
--- NOTE | 2016-12-09 17:24 | DS ---
Date/Time of Note Date/Time of Note DATE: 12/09/16 TIME: 17:23 Discharge Summary Admission/Discharge Info Admit Date/Time Dec 07, 2016 at 06:50 Discharge Date/Time 12/09/2016 Discharge Diagnosis S/P vaginal delivery and BTL Patient Condition: Good Procedures vaginal delivery and PP BTL Hx of Present Illness 26 y/o female had vaginal delivery and BTL Hospital Course uncomplicated Home Meds Active Scripts Ibuprofen* (Ibuprofen*) 600 Mg Tablet, 600 MG PO Q6, #30 TAB 0 Refills Prov:KELLE KIM MD 12/08/16 Reported Medications Calcium Citrate/Vitamin D (Citracal-Vitamin D 200 MG-250) 1 Each Tablet, 1 EACH PO BID, TAB 11/28/16 Iron,Carbonyl/Ascorbic Acid (IRON 100-VITAMIN C TABLET) 1 Each Tablet, 1 EACH PO ONCE, TAB 11/28/16 Vit/Fe Fumarate/Fa* ( Vitamin Tablet*) 1 Tab Tablet, 1 TAB PO 03/15/13 Follow-up Plan 4 weeks in clinic Primary Care Provider Sae Barkley MD Time spent on discharge: > 30 minutes KELLE KIM MD Dec 09, 2016 17:24
[2016-12-09] MEDS ORDERED: LACTATED RINGER'S 1,000 ML IV SCH (17:26)
[2016-12-09] MEDS ORDERED: KETOROLAC 60 MG INJ IM STA (17:26)
[2016-12-09] MEDS ORDERED: BUTORPHANOL 2 MG INJ IM ONE (17:30)
[2016-12-09] MEDS ORDERED: DOXYCYCLINE 100 MG TAB PO ONE (17:30)
== END 2016-12-09 22:20 | disposition home or self-care (01) | DRG 767 ==
LOC: L-D 04:30 → OBT 04:30 → L-D 06:50 → PP1 21:16
PROVIDERS: ADMIT Obstetrics & Gynecology; ATTEND Obstetrics & Gynecology
PROC: 10E0XZZ Delivery of Products of Conception, External Approach (ICD-10-PCS; principal; 2016-12-07)
PROC: 0UB70ZZ Excision of Bilateral Fallopian Tubes, Open Approach (ICD-10-PCS; 2016-12-09)
DX: O80 Encounter for full-term uncomplicated delivery (principal); Z30.2 Encounter for sterilization; Z37.0 Single live birth; Z3A.39 39 weeks gestation of pregnancy
CPT/HCPCS: 62319; 76815; 85025; 85610; 85730; 86592; 86900; 86901; 87340; 88302; 90715; 90716; G0463; J0290; J0595; J0690; J1100; J1885; J2250; J2405; J2590; J2765; J2795; J3010; J7120